=== PATIENT | female | born 1935 | race Caucasian/White ===

== ENCOUNTER 2016-10-24 18:50 | Emergency (ER) | payer MEDICARE, BC ==
--- NOTE | ~2016-10-24 | ER ---
PATIENT'S NAME: KAT LEAHY [facility] AGE: 80 Y [address] ROOM: [place] [address] LOCATION: [facility] ADMIT DATE: 10/24/2016 ER/Outpatient Report DISCHARGE DATE: 10/24/2016 FAMILY PHYSICIAN: PHYSICIAN, NO ATTENDING PHYSICIAN: Narciso Reid CHIEF COMPLAINT: Fall. HISTORY OF PRESENT ILLNESS: The patient presents by ambulance for fall. She was in her hotel room when she tripped over a rug and fell on the floor. She denies loss of consciousness, but does have a few facial lacerations and some neck pain. She also has pain in her left knee and multiple aches, but no focal tenderness. She has not taken any medications prior to arrival. She lives in [place] and was traveling from her winter home in [place] to her summer home in [place]. She denies any major medical conditions other than a history of TIA and skin cancer, but does not really take any medications otherwise. Does not remember her last tetanus. PAST MEDICAL HISTORY: Documented on the record and reviewed by me. SOCIAL HISTORY: Documented on the record and reviewed by me. MEDICATIONS: Documented on the record and reviewed by me. ALLERGIES: DOCUMENTED ON THE RECORD AND REVIEWED BY ME. REVIEW OF SYSTEMS: All systems are reviewed and negative except as noted in the HPI. PHYSICAL EXAMINATION: VITAL SIGNS: Blood pressure 155/101, pulse is 78, respiratory rate is 16, temp 97.8, and SpO2 is 97% on room air. Pain 6/10. Discharge vitals are grossly unremarkable, blood pressure 174/84, pain improved. GENERAL: Age-appropriate female, in mild discomfort. No outward signs of severe pain, in no distress, resting on the exam table. NEURO: The patient is awake and alert. She moves all extremities appropriately. GCS is 15. No dysarthria. No obvious abnormalities. HEENT: There is a 1.8 cm laceration over the left brow ridge with no active bleeding. No foreign material. There is an angulated sharp corner laceration PATIENT'S NAME: KAT LEAHY [facility] AGE: 80 Y [address] ROOM: [place] [address] LOCATION: [facility] ADMIT DATE: 10/24/2016 ER/Outpatient Report DISCHARGE DATE: 10/24/2016 FAMILY PHYSICIAN: PHYSICIAN, NO ATTENDING PHYSICIAN: Narciso Reid of a total length of 2.5 cm in the left upper lip that does not involve the vermilion border with exposed tissue and muscle. No active bleeding. The eyes are PERRL. Extraocular movements are intact. The oropharynx is normal to inspection with no bleeding or broken teeth. NECK: Supple. Trachea is midline. There is some scant paraspinal tenderness and midline tenderness particularly when the chin goes to the right. This remained stable on repeat exam. CHEST: Normal to inspection, nontender to palpation. HEART: Regular rate and rhythm. No murmurs. LUNGS: Clear to auscultation bilateral. No rhonchi, wheezes, or rales. ABDOMEN: Soft, nontender, and nondistended. No rebound or guarding. BACK: Has diffuse tenderness, paraspinal, no spinal tenderness, no step-offs. EXTREMITIES: Notable for some tenderness around the left knee. No edema is appreciated. No joint effusion. No skin tears or breakdown. Surgical scar present. Her extremities are otherwise unremarkable. SKIN: Warm, dry, and intact except as noted above. LABS AND X-RAYS: The CT of the head and C-spine are unremarkable per Radiology. No other labs were obtained. IMPRESSION: 1. Mechanical fall. 2. Eyebrow laceration. 3. Upper lip laceration. 4. Persistent neck pain. 5. Hypertension. EMERGENCY DEPARTMENT COURSE: The patient was seen and evaluated as above. The lacerations were closed. The eyebrow laceration was irrigated copiously and 3 simple interrupted Prolene sutures 5-0 were placed to approximate the skin tissue. The patient tolerated the procedure well. The upper lip area was copiously irrigated. No foreign body was identified. No clear muscle involvement. The maxilla was visible in the deep wound. No obvious osseous abnormalities. A single deep 5- 0 chromic suture was placed to close the potential space. Subsequently, 7 total interrupted simple sutures were placed to approximate the skin edges. A total of 2 mL of lidocaine without epinephrine were used to anesthetize the lip of the eyebrow. The patient did tolerate the procedures well. A CT scan of the head and neck were obtained as above. Plain films of the left knee were unremarkable. The patient was able to ambulate with minimal difficulty. A C-collar was placed upon arrival on assessment of the neck with some pain. She did receive the CT scan and continued to have neck pain upon trial of clearance and thus an [place] collar was placed. As she is traveling, we will recommend that she have reevaluation in a few days and suture removal in 3-5 PATIENT'S NAME: KAT LEAHY [facility] AGE: 80 Y [address] ROOM: [place] [address] LOCATION: [facility] ADMIT DATE: 10/24/2016 ER/Outpatient Report DISCHARGE DATE: 10/24/2016 FAMILY PHYSICIAN: PHYSICIAN, ZOYA ATTENDING PHYSICIAN: Narciso Reid. If she still have the neck pain, she should have plain films of the neck to evaluate stability and further evaluation at that time. Otherwise, she could be cleared if there was no further pain. Her tetanus was updated, she was encouraged to take [id number] antiinflammatories, and she should follow up with her local providers as needed. All questions were answered and the patient was discharged in good condition. MD HARIKA DALTON/gabriella /[id number] d: 10/25/16610 t: 11/04/16 0934, OUTPATIENT REPORT
== END 2016-10-24 20:40 | disposition disaster alternative care site (69) ==
LOC: GACC 18:50
PROC: 0HQ1XZZ Repair Face Skin, External Approach (ICD-10-PCS; principal; 2016-10-24)
PROC: 0JQ10ZZ Repair Face Subcutaneous Tissue and Fascia, Open Approach (ICD-10-PCS; 2016-10-24)
DX: S01.112A Laceration without foreign body of left eyelid and periocular area, initial encounter (principal); S01.511A Laceration without foreign body of lip, initial encounter; M54.2 Cervicalgia; Z23 Encounter for immunization; I10 Essential (primary) hypertension; W01.0XXA Fall on same level from slipping, tripping and stumbling without subsequent striking against object, initial encounter

== ENCOUNTER → 2016-10-24 | Outpatient (CLI) | payer MEDICARE, BC | END | disposition disaster alternative care site (69) | LOC: GAMB 18:30 | DX: S01.511A Laceration without foreign body of lip, initial encounter (principal); W01.0XXA Fall on same level from slipping, tripping and stumbling without subsequent striking against object, initial encounter | CPT/HCPCS: A0425; A0429 ==